=== PATIENT | female | born 1990 | race Caucasian/White ===

== ENCOUNTER 2023-09-14 20:33 | Inpatient (IN) | payer OTHER ==
[2023-09-14] MEDS ORDERED: PROMETHAZINE HCL 25 MG/1 ML VIAL IVPB PRN (22:23)
[2023-09-14] MEDS ORDERED: BUTORPHANOL TARTRATE 2 MG/ML VIAL IVPB PRN (22:23)
[2023-09-14 22:54] VITALS: BMI 37.9
[2023-09-14] MEDS: LACTATED RINGERS SOLUTION 1,000 ML/1,000 ML INFUS.BAG IV SCH (23:10)
[2023-09-14] MEDS: DINOPROSTONE 10 MG VAGINAL SUPPOSITORY VG ONE (23:22)
[2023-09-15] MEDS ORDERED: PROMETHAZINE HCL 25 MG/1 ML VIAL ONE (04:36)
[2023-09-15] MEDS ORDERED: BUTORPHANOL TARTRATE 2 MG/ML VIAL ONE (04:36)
[2023-09-15] MEDS ORDERED: AMPICILLIN SODIUM 2 GM VIAL ONE (05:49)
[2023-09-15] MEDS: AMPICILLIN - 2 GM in SODIUM CHLORIDE 100 ML IVPB ONE (05:55)
[2023-09-15] MEDS: ELECTROLYTE-148 SOLN 1,000 ML IV SCH (08:00)
[2023-09-15] MEDS ORDERED: AMPICILLIN SODIUM 1 GM VIAL ONE ×4 (10:02→22:23)
[2023-09-15] MEDS: AMPICILLIN - 1 GM in SODIUM CHLORIDE 100 ML IVPB SCH (10:05)
[2023-09-15] MEDS ORDERED: OXYTOCIN 30 UNITS in 0.9% NS 30 UNIT/500 ML INFUS.BAG IVPB ONE (10:54)
[2023-09-15] MEDS: OXYTOCIN 30 UNITS in 0.9% NS 30 UNIT/500 ML INFUS.BAG IVPB SCH (11:00)
[2023-09-15] MEDS ORDERED: ZOLPIDEM TARTRATE 5 MG TABLET ONE (21:58)
[2023-09-15] MEDS: ZOLPIDEM TARTRATE 5 MG TABLET PO PRN (22:00)
[2023-09-15] MEDS ORDERED: SODIUM CHLORIDE 100 ML IVPB ONE (22:23)
[2023-09-15] MEDS ORDERED: FENTANYL/BUPIVACAINE/NS/PF - PCEA - 50 ML DISP.SYRIN EP ONE (23:26)
[2023-09-15] MEDS ORDERED: FENTANYL CITRATE/PF 50 MCG/ML VIAL ONE (23:33)
[2023-09-15] MEDS ORDERED: BUPIVACAINE HCL/PF 0.25% (2.5MG/ML) 10 ML VIAL ONE (23:33)
[2023-09-15] MEDS: FENTANYL/BUPIVACAINE/NS/PF - PCEA - 50 ML DISP.SYRIN EP SCH (23:58)
[2023-09-16] MEDS ORDERED: NALOXONE HCL 0.4 MG/ML VIAL IVPUSH PRN (00:02)
[2023-09-16] MEDS ORDERED: OXYTOCIN 20 UNITS in 0.9% NS 20 UNIT/1,000 ML INFUS.BAG IV ONE (02:11)
[2023-09-16] MEDS: OXYTOCIN 20 UNITS in 0.9% NS 20 UNIT/1,000 ML INFUS.BAG IV SCH (03:10)
[2023-09-16] MEDS: METHYLERGONOVINE MALEATE 0.2 MG/1 ML AMP IM PRN (03:11)
[2023-09-16] MEDS ORDERED: WITCH HAZEL 50% (TUCKS) 40 PAD/JAR PAD TP PRN (03:37)
[2023-09-16] MEDS ORDERED: BENZOCAINE 20% 57 GM BOTTLE TP PRN (03:37)
[2023-09-16] MEDS ORDERED: BENZOCAINE 28 GM HEMORRHOIDAL OINTMENT TP PRN (03:37)
[2023-09-16] MEDS ORDERED: oxyCODONE HCL 5 MG TABLET PO PRN (03:37)
[2023-09-16] MEDS ORDERED: ACETAMINOPHEN 325 MG TABLET (FP) PO PRN (03:37)
[2023-09-16] MEDS ORDERED: BISACODYL 10 MG SUPP.RECT RC PRN (03:37)
[2023-09-16] MEDS: IBUPROFEN 600 MG TABLET (FP) PO PRN (21:20)
[2023-09-17 07:42] LABS: BASO % 0.1 % (0-2.0); HEMATOCRIT 23.3 % (32.4-45.2); HEMOGLOBIN 7.9 GM/dL (10.7-15.3); LYMPH % 25.8 % (8-40); MCH 32.1 pg (25.7-33.7); MCHC 34.1 g/dl (32.0-36.0); MEAN PLT VOLUME 7.2 fl (7.5-11.1); MONO % 6.4 % (3.8-10.2); NEUT % 66.7 % (42.8-82.8); PLATELET COUNT 195 10^3/uL (134-434); RBC 2.47 M/mm3 (3.60-5.2); RDW 13.8 % (11.6-15.6); WHITE BLOOD COUNT 12.1 K/mm3 (4.0-10.0)
[2023-09-17 21:23] VITALS: RESP 18
[2023-09-17] MEDS ORDERED: SENNOSIDES/DOCUSATE COMBO (SENNA PLUS) TABLET (UD) PO PRN (22:00)
[2023-09-17] MEDS: IRON SUCROSE INJECTION 200 MG in SODIUM CHLORIDE 100 ML IVPB ONE (22:56)
[2023-09-18 10:11] VITALS: BP 129/69; PULSE 102; TEMP 98.5
== END 2023-09-18 13:50 | disposition home or self-care (01) | DRG 560 ==
LOC: JLDR 20:33 → J3W 09-16 05:22
PROVIDERS: ADMIT Obstetrics & Gynecology; ATTEND Specialist
PROC: 3E0P7VZ Introduction of Hormone into Female Reproductive, Via Natural or Artificial Opening (ICD-10-PCS; principal; 2023-09-16)
PROC: 10E0XZZ Delivery of Products of Conception, External Approach (ICD-10-PCS; 2023-09-16)
PROC: 0HQ9XZZ Repair Perineum Skin, External Approach (ICD-10-PCS; 2023-09-16)
DX: O36.5930 Maternal care for other known or suspected poor fetal growth, third trimester, not applicable or unspecified (principal); O24.429 Gestational diabetes mellitus in childbirth, unspecified control; O99.824 Streptococcus B carrier state complicating childbirth; O69.89X0 Labor and delivery complicated by other cord complications, not applicable or unspecified; O90.81 Anemia of the puerperium; Z3A.39 39 weeks gestation of pregnancy; Z37.0 Single live birth
CPT/HCPCS: 36415; 59409; 85025; 86803; J1756

== ENCOUNTER 2024-09-17 21:10 | Inpatient (IN) | payer OTHER ==
[2024-09-17] MEDS: DEXTROSE 5%-LACTATED RINGERS 1,000 ML IV SCH (21:30)
[2024-09-17 21:41] VITALS: BMI 35.1
[2024-09-17 21:49] LABS: ABSOLUTE IMMATURE GRANULOCYTES 0.04 x10^3/uL (0.0-0.031); BASOPHILS # 0.02 x10^3/uL (0.01-0.08); EOSINOPHIL % 0.9 % (0.7-5.8); EOSINOPHILS # 0.06 x10^3/uL (0.04-0.36); HEMATOCRIT 32.1 % (34.1-44.9); HEMOGLOBIN 10.9 g/dL (11.2-15.7); MEAN CELL VOLUME 92.8 fl (79.4-94.8); MEAN PLT VOLUME 9.6 fl (9.4-12.3); MONOCYTE # 0.56 x10^3/uL (0.24-0.86); MONOCYTE % 8.3 % (4.7-12.5); PLATELET COUNT 193 x10^3/uL (182-369); RDW 13.3 % (12.1-16.8)
[2024-09-17 21:51] LABS: INR 0.96 (0.83-1.09); PROTHROMBIN TIME (PATIENT) 10.6 SEC (9.7-13.0)
[2024-09-17 21:54] LABS: ACTIVATED PTT 24.7 SECONDS (25.2-36.5)
[2024-09-17 22:18] LABS: POTASSIUM 3.8 mmol/L (3.5-5.1)
[2024-09-17 22:20] LABS: BLOOD UREA NITROGEN 12.7 mg/dL (7-18); CALCIUM 8.8 mg/dL (8.5-10.1)
[2024-09-17 22:24] LABS: CREATININE 0.7 mg/dL (0.55-1.3)
[2024-09-17] MEDS: MISOPROSTOL 25 MCG TABLET (COMPOUNDED BY PHARMACY) PV ONE (22:34)
[2024-09-17] MEDS ORDERED: AMPICILLIN SODIUM 2 GM VIAL ONE (22:50)
[2024-09-17] MEDS: AMPICILLIN - 2 GM in SODIUM CHLORIDE 100 ML IVPB ONE (22:58)
[2024-09-18] MEDS ORDERED: FENTANYL/BUPIVACAINE/NS/PF - PCEA - 50 ML DISP.SYRIN EP ONE ×3 (01:19→09:46)
[2024-09-18] MEDS: FENTANYL/BUPIVACAINE/NS/PF - PCEA - 50 ML DISP.SYRIN EP SCH (01:40)
[2024-09-18] MEDS ORDERED: NALOXONE HCL 0.4 MG/ML VIAL IVPUSH PRN (02:11)
[2024-09-18] MEDS ORDERED: AMPICILLIN SODIUM 1 GM VIAL ONE ×3 (02:19→10:45)
[2024-09-18] MEDS: AMPICILLIN - 1 GM in SODIUM CHLORIDE 100 ML IVPB SCH (02:25)
[2024-09-18] MEDS: PROMETHAZINE HCL 25 MG/1 ML VIAL IVPB ONE (04:48)
[2024-09-18] MEDS: BUTORPHANOL TARTRATE 2 MG/ML VIAL IVPB ONE (04:48)
[2024-09-18] MEDS ORDERED: BUPIVACAINE HCL/PF 0.25% (2.5MG/ML) 10 ML VIAL ONE (08:26)
[2024-09-18] MEDS ORDERED: OXYTOCIN 30 UNITS in 0.9% NS 30 UNIT/500 ML INFUS.BAG IVPB ONE (11:34)
[2024-09-18] MEDS: OXYTOCIN 30 UNITS in 0.9% NS 30 UNIT/500 ML INFUS.BAG IVPB SCH (11:40)
[2024-09-18] MEDS ORDERED: OXYTOCIN 20 UNITS in 0.9% NS 20 UNIT/1,000 ML INFUS.BAG IV ONE (13:06)
[2024-09-18] MEDS: OXYTOCIN 20 UNITS in 0.9% NS 20 UNIT/1,000 ML INFUS.BAG IV SCH (13:55)
[2024-09-18] MEDS ORDERED: WITCH HAZEL 50% (TUCKS) 40 PAD/JAR PAD TP PRN (15:13)
[2024-09-18] MEDS ORDERED: oxyCODONE HCL 5 MG TABLET PO PRN (15:13)
[2024-09-18] MEDS ORDERED: METHYLERGONOVINE MALEATE 0.2 MG/1 ML AMP IM PRN (15:13)
[2024-09-18] MEDS ORDERED: BISACODYL 10 MG SUPP.RECT RC PRN (15:13)
[2024-09-18] MEDS ORDERED: BENZOCAINE 28 GM HEMORRHOIDAL OINTMENT TP PRN (15:13)
[2024-09-18] MEDS ORDERED: IBUPROFEN 600 MG TABLET (FP) PO ONE (15:26)
[2024-09-18] MEDS: IBUPROFEN 600 MG TABLET (FP) PO PRN (15:30)
[2024-09-18 16:35] VITALS: RESP 18
[2024-09-18] MEDS: BENZOCAINE 20% 57 GM BOTTLE TP PRN (19:52)
[2024-09-18] MEDS: ACETAMINOPHEN 325 MG TABLET (FP) PO PRN (19:52)
[2024-09-19 08:15] LABS: ABSOLUTE IMMATURE GRANULOCYTES 0.05 x10^3/uL (0.0-0.031); BASOPHILS # 0.01 x10^3/uL (0.01-0.08); EOSINOPHIL % 0.3 % (0.7-5.8); EOSINOPHILS # 0.03 x10^3/uL (0.04-0.36); HEMATOCRIT 27.4 % (34.1-44.9); HEMOGLOBIN 9.2 g/dL (11.2-15.7); MCHC 33.6 g/dl (32.2-35.5); MEAN CELL VOLUME 93.5 fl (79.4-94.8); MEAN PLT VOLUME 10.1 fl (9.4-12.3); MONOCYTE % 7.2 % (4.7-12.5); PLATELET COUNT 158 x10^3/uL (182-369); RDW 13.4 % (12.1-16.8)
[2024-09-19] MEDS ORDERED: SENNOSIDES/DOCUSATE COMBO (SENNA PLUS) TABLET (UD) PO PRN (22:00)
[2024-09-19 23:18] VITALS: TEMP 98.4
[2024-09-20 11:23] VITALS: BP 118/74; PULSE 84
== END 2024-09-20 13:50 | disposition home or self-care (01) | DRG 560 ==
LOC: JLDR 21:10 → J3W 09-18 16:31
PROVIDERS: ADMIT Obstetrics & Gynecology; ATTEND Specialist
PROC: 10E0XZZ Delivery of Products of Conception, External Approach (ICD-10-PCS; principal; 2024-09-18)
PROC: 0HQ9XZZ Repair Perineum Skin, External Approach (ICD-10-PCS; 2024-09-18)
DX: O36.63X0 Maternal care for excessive fetal growth, third trimester, not applicable or unspecified (principal); O70.0 First degree perineal laceration during delivery; Z3A.38 38 weeks gestation of pregnancy; Z37.0 Single live birth
CPT/HCPCS: 36415; 59409; 80048; 85025; 85610; 85730; 86780; 86850; 86900; 86901